=== PATIENT | female | born 1950 ===

== ENCOUNTER 2020-10-04 08:39 | Emergency (ER) | payer OTHER ==
[~2020-10-04] VITALS: Ht 149.9 cm; Wt 66.7 kg
[~2020-10-04 08:39] MED LIST: CATAFLAM50 MG; KETO10TA2 PO; LEVITRA2.5 MG; NEURONTIN300 MG; PAXIL20 MG
== END 2020-10-04 11:39 | disposition home or self-care (01) ==
LOC: ER 08:39
DX: M50.10 Cervical disc disorder with radiculopathy, unspecified cervical region (principal)